=== PATIENT | female | born 2000 | race Caucasian/White ===

== ENCOUNTER 2024-11-22 08:57 | Emergency (ER) | payer OTHER, BC ==
[2024-11-22] MEDS ORDERED: Sodium Chloride 0.9% 10 ML Syringe FLUSH PRN (08:59)
[2024-11-22 09:03] LABS: BASOPHILS ABSOLUTE AUTO 0.04 K/uL (0.00-0.20); BASOPHILS PERCENT AUTO 0.5 % (0.0-2.0); EOSINOPHILS ABSOLUTE AUTO 0.08 K/uL (0.00-0.50); HEMATOCRIT 39.5 % (34.0-46.0); HEMOGLOBIN 12.9 g/dL (11.7-15.5); IMMATURE GRAN ABSOLUTE AUTO 0.05 10^3/uL (0.00-0.04); IMMATURE GRAN PERCENT AUTO 0.6 % (0.0-0.4); LYMPHOCYTES ABSOLUTE AUTO 2.77 K/uL (0.50-3.50); LYMPHOCYTES PERCENT AUTO 35.4 % (10.0-50.0); MEAN CORPUSCULAR HEMOGLOBIN 28.1 pg (28.2-33.3); MEAN CORPUSCULAR HGB CONC 32.7 g/dL (31.7-36.0); MEAN CORPUSCULAR VOLUME 86.1 fL (84.0-98.0); MONOCYTES ABSOLUTE AUTO 0.43 K/uL (0.00-1.00); MONOCYTES PERCENT AUTO 5.5 % (2.0-14.0); NEUTROPHILS ABSOLUTE AUTO 4.45 K/uL (1.40-7.00); PLATELET COUNT,PLT 387 K/uL (150-350); RED BLOOD CELL COUNT 4.59 M/uL (3.77-5.09); RED CELL DISTRIBUTION WIDTH 12.8 % (11.2-14.1); WHITE BLOOD CELL COUNT,WBC 7.8 K/uL (4.0-10.2)
[2024-11-22 09:25] LABS: ALANINE AMINOTRANSFERASE,ALT 24 U/L (12-78); ALBUMIN 3.7 g/dL (3.4-5.0); ALKALINE PHOSPHATASE 144 IU/L (46-116); ANION GAP 10.1 meq/L (7-15); ASPARTATE AMNIOTRANSFERASE,AST 12 U/L (15-37); BILIRUBIN TOTAL 0.3 mg/dL (0.2-1.0); BLOOD UREA NITROGEN,BUN 22 mg/dL (7-18); CALCIUM 9.1 mg/dL (8.5-10.1); CARBON DIOXIDE,CO2 22.9 mmol/L (21.0-32.0); CHLORIDE,CL 107 mmol/L (98-107); CREATINE KINASE,CK 108 U/L (26-308); CREATININE 0.96 mg/dL (0.51-1.17); GLUCOSE RANDOM 89 mg/dL (70-99); LIPASE 25 U/L (16-77); POTASSIUM,K 4.3 mmol/L (3.5-5.1); PROTEIN TOTAL,TP 7.9 g/dL (6.4-8.2); SODIUM,NA 140 mmol/L (136-145)
[2024-11-22 09:28] LABS: ESTIMATED GFR 86 mL/min (>=60)
== END 2024-11-22 11:20 | disposition home or self-care (01) ==
LOC: LL.ED 08:57 → SUPCPDRO 08:57 → LL.ED 11:20
DX: R51.9 Headache, unspecified (principal); R07.9 Chest pain, unspecified; V49.40XA Driver injured in collision with unspecified motor vehicles in traffic accident, initial encounter; Y93.89 Activity, other specified
CPT/HCPCS: 36415; 71045; 72040; 80053; 82550; 83690; 84484; 85025; 99283; 99284-25

== ENCOUNTER 2025-03-19 08:55 | Emergency (ER) | payer BC, OTHER | END 2025-03-19 10:20 | disposition home or self-care (01) | LOC: LL.ED 08:55 | DX: S01.81XA Laceration without foreign body of other part of head, initial encounter (principal); W22.8XXA Striking against or struck by other objects, initial encounter | CPT/HCPCS: 12011; 99283; A9270; 99282 ==